=== PATIENT | male | born 1960 | race Caucasian/White ===

== ENCOUNTER → 2022-05-18 | Day surgery (SDC) | payer MEDICAID ==
[~2022-05-18] MED LIST: Lactated Ringers 1,000 ML IV SCH; Midazolam 1 MG/ML 2 ML SDV ONE; Propofol 200 MG/20 ML SDV ONE; fentaNYL 100 MCG/2 ML SDV ONE
[2022-05-18 10:27] VITALS: BP 114/60
[2022-05-18 10:38] VITALS: PULSE 59
== END ==
LOC: JP.SDS 07:56
PROVIDERS: ATTEND Family Medicine
DX: Z12.11 Encounter for screening for malignant neoplasm of colon (principal); D12.5 Benign neoplasm of sigmoid colon; F17.200 Nicotine dependence, unspecified, uncomplicated; Z86.010 Personal history of colon polyps
CPT/HCPCS: 45385; J2250; J2704; J3010; J7120

== ENCOUNTER 2025-02-12 09:44 | Day surgery (SDC) | payer MEDICARE ==
[~2025-02-12 09:44] MED LIST changes: +Dexamethasone 4 MG/ML SDV ONE; +Glycopyrrolate 0.2 MG/ML 5 ML MDV ONE; -Lactated Ringers 1,000 ML IV SCH; -Midazolam 1 MG/ML 2 ML SDV ONE; +Neostigmine Methylsulfate 10 MG/10 ML MDV ONE; +Ondansetron 4 MG/2 ML SDV ONE; +Rocuronium 50 MG/5 ML Vial ONE; +Succinylcholine 200 MG/10 ML MDV ONE; -fentaNYL 100 MCG/2 ML SDV ONE; +fentaNYL 250 MCG/5 ML SDV ONE
[2025-02-12] MEDS: Lactated Ringers 1,000 ML IV SCH (10:48)
[2025-02-12] MEDS: ceFAZolin 2 GM in Premix Bag 1 BAG IV ONE (10:58)
[2025-02-12] MEDS: metroNIDAZOLE/Normal Saline 500 MG in Premix Bag 1 BAG IV ONE (10:59)
[2025-02-12] MEDS: Bupivacaine 0.5%/EPINEPHrine 1:200,000 50 ML MDV ONE (11:27)
[2025-02-12] MEDS ORDERED: Lactated Ringers 1,000 ML ONE (12:13)
[2025-02-12] MEDS: Acetaminophen/HYDROcodone 325-5 MG Tab PO ONE (13:59)
[2025-02-12 14:52] VITALS: BP 144/84; PULSE 66
== END 2025-02-12 15:30 | disposition home or self-care (01) ==
LOC: JP.SDS 09:44
PROVIDERS: ATTEND Surgery
DX: K40.31 Unilateral inguinal hernia, with obstruction, without gangrene, recurrent (principal); F17.290 Nicotine dependence, other tobacco product, uncomplicated
CPT/HCPCS: 49651; A9270; C1781; J0171; J0330; J0690; J1100; J1596; J1836; J2405; J2704; J2710; J2795; J3010; J3490; J7120